=== PATIENT | female | born 1975 | race Caucasian/White ===

== ENCOUNTER → 2018-04-09 | Outpatient (REF) | payer SELFPAY | LOC: M SFHCWAGY 15:33 | DX: Z12.72 Encounter for screening for malignant neoplasm of vagina (principal) ==

== ENCOUNTER → 2019-05-19 | Outpatient (REF) | payer BC ==
[2019-05-21 14:07] LABS: HPV HYBRID CAPTURE II Negative (Negative)
== END ==
LOC: M SFHCWAGY 15:59
PROVIDERS: ATTEND Nurse Practitioner Women's Health
DX: Z85.42 Personal history of malignant neoplasm of other parts of uterus (principal); Z12.72 Encounter for screening for malignant neoplasm of vagina; Z98.890 Other specified postprocedural states; Z12.31 Encounter for screening mammogram for malignant neoplasm of breast
CPT/HCPCS: 87624; G0123

== ENCOUNTER → 2019-05-19 | Outpatient (CLI) | payer BC ==
--- NOTE | 2019-05-19 16:51 | REPMRS ---
Patient History The patient states she had a clinical breast exam in 05/2019. Patient has history of endometrial cancer at age 38. Family history of colorectal cancer in maternal grandfather. No Hormone Replacement Therapy Digital Woman Screen Mammo: May 19, 2019 - Exam #: [id number] Bilateral CC and MLO view(s) were taken. Technologist: Bonita Burleson Technologist Prior study comparison: April 21, 2018, bilateral digital woman screen mammo performed at [facility]. FINDINGS: There are scattered fibroglandular densities. There has been no change in the appearance of the mammogram from the prior studies. There is a mild amount of scattered fibroglandular density which is fairly symmetric. There is no interval development of dominant mass, architectural distortion, or grouped microcalcification suggestive of malignancy. 3-D tomosynthesis shows no additional findings. Assessment: BI-RADS/ACR category 1 mammogram. Negative Mammogram. Recommendation Routine screening mammogram of both breasts in 1 year (for women over age 40). This patient's Lifetime Breast Cancer Risk is estimated at 9.0 %. This mammogram was interpreted with the aid of an FDA-approved computer-aided dectection system. Electronically Signed By: Alfred Ch MD 05/19/19 [id number]
== END ==
LOC: M WHC 14:56
PROVIDERS: ATTEND Nurse Practitioner Women's Health
DX: Z12.31 Encounter for screening mammogram for malignant neoplasm of breast (principal); Z85.40 Personal history of malignant neoplasm of unspecified female genital organ